=== PATIENT | male | born 1980 | race Caucasian/White ===

== ENCOUNTER 2018-01-16 07:34 | Emergency (ER) | payer SELFPAY ==
[2018-01-16 07:48] VITALS: BP 136/81
--- NOTE | 2018-01-16 08:56 | UC ---
Respiratory Complaint HPI - HPI Summary HPI Summary: PATIENT PRESENTS WITH ABOUT A WEEK OF COUGH AND NASAL CONGESTION. HAD SORE THROAT INITIALLY THAT IS NOW RESOLVED. NO EAR PAIN, NAUSEA/VOMITING OR FEVER. - History of Current Complaint Chief Complaint: UCRespiratory Stated Complaint: RESP ISSUE Time Seen by Provider: 01/16/18 08:27 Hx Obtained From: Patient Onset/Duration: Gradual Onset, Lasting Days, Still Present Timing: Constant Severity Initially: Moderate Severity Currently: Moderate Pain Intensity: 4 Pain Scale Used: 0-10 Numeric Character: Cough: Nonproductive Aggravating Factors: Nothing Alleviating Factors: Nothing Associated Signs And Symptoms: Positive: Wheezing, URI, Nasal Congestion, Sinus Discomfort. Negative: Dyspnea, Fever, Pleuritic Chest Pain - Allergies/Home Medications Allergies/Adverse Reactions: Allergies Allergy/AdvReac Type Severity Reaction Status Date / Time Penicillins Allergy Unknown Verified 01/16/18 07:48 Reaction Details Home Medications: Home Medications Dm/PE/Acetaminophen/Doxylamine [Vicks Nyquil Severe Cold-Flu] 1 tab PO 01/16/18 [History] Ibuprofen TAB* [Advil TAB*] 800 mg PO Q6H PRN 01/16/18 [History Confirmed ] PMH/Surg Hx/FS Hx/Imm Hx Respiratory History: Asthma - Surgical History Surgical History: Yes Surgery Procedure, Year, and Place: Tendon repair right pointer finger. surgical repair of lung in 2003 - Family History Known Family History: Negative: Hypertension - Social History Alcohol Use: Occasionally Substance Use Type: None Smoking Status (MU): Heavy Every Day Tobacco Smoker Type: Cigarettes Amount Used/How Often: 1 PPD Review of Systems Constitutional: Negative ENT: Sore Throat, Nasal Discharge, Sinus Congestion Respiratory: Cough Cardiovascular: Negative Gastrointestinal: Negative All Other Systems Reviewed And Are Negative: Yes Physical Exam Triage Information Reviewed: Yes Appearance: Well-Appearing, No Pain Distress, Well-Nourished Vital Signs: Initial Vital Signs Temp 98.8 F 01/16/18 07:45 Pulse 91 01/16/18 07:45 Resp 18 01/16/18 07:45 BP 136/81 01/16/18 07:45 Pulse Ox 98 01/16/18 07:45 Vital Signs Reviewed: Yes Eyes: Positive: Conjunctiva Clear ENT: Positive: Hearing grossly normal, Pharyngeal erythema, TMs normal Neck: Positive: Supple, Nontender, No Lymphadenopathy Respiratory Exam: Normal Abdominal Exam: Normal Musculoskeletal: Positive: No Edema Neurological: Positive: Alert Psychological: Positive: Age Appropriate Behavior Skin: Negative: rashes UC Diagnostic Evaluation - Laboratory O2 Sat by Pulse Oximetry: 98 Respiratory Course/Dx - Differential Dx/Diagnosis Provider Diagnoses: ACUTE URI Discharge - Sign-Out/Discharge Documenting (check all that apply): Discharge/Admit/Transfer - Discharge Plan Condition: Stable Disposition: HOME Prescriptions: Albuterol HFA INHALER* [Ventolin HFA Inhaler*] 2 puff INH Q4H PRN #1 mdi PRN Reason: Shortness Of Breath Codeine Phosphate/Guaifenesin [Codeine-Guaifen 10-100 mg/5 ml] 5 - 10 ml PO Q6H PRN #150 ml MDD 40ML PRN Reason: Cough predniSONE TAB* [Deltasone TAB*] 50 mg PO DAILY #5 tab Patient Education Materials: Upper Respiratory Infection (ED) Referrals: Troy Atkins DO [Doctor of Osteopathy] - If Needed Additional Instructions: YOUR SYMPTOMS ARE LIKELY VIRALLY MEDIATED AND SHOULD RESOLVE ON THEIR OWN WITH TIME. NO INDICATION FOR ANTIBIOTICS AT PRESENT. REST, HYDRATE, OTC MEDS NEEDED. WILL TREAT WITH PREDNISONE AND ALBUTEROL TO HELP WITH AIRWAY INFLAMMATION AND COUGH MEDICINE. SEEK FOLLOW-UP IF YOU ARE NOT IMPROVING OVER THE NEXT 1-2 WEEKS. USE OTC AFRIN FOR NASAL CONGESTION. 2 SPRAYS IN EACH NOSTRIL TWICE DAILY NEEDED. DO NOT USE FOR MORE THAN 3-4 DAYS IN A ROW TO PREVENT DEVELOPING REBOUND CONGESTION. CALL ME ON MONDAY IN [place] 7A-2:30P IF YOU ARE NOT IMPROVING. [phone] - Billing Disposition and Condition Condition: STABLE Disposition: HOME
== END 2018-01-16 08:59 | disposition home or self-care (01) ==
LOC: UCEAST 07:34
DX: J06.9 Acute upper respiratory infection, unspecified (principal); J45.909 Unspecified asthma, uncomplicated; Z88.0 Allergy status to penicillin; F17.210 Nicotine dependence, cigarettes, uncomplicated
CPT/HCPCS: 99212; G0463

== ENCOUNTER 2018-09-11 13:08 | Emergency (ER) | payer SELFPAY ==
[2018-09-11 13:25] VITALS: BP 117/74
[2018-09-11] MEDS ORDERED: Ketorolac INJ* 60 MG/2 ML VIAL IM ONE (13:30)
[2018-09-11] MEDS ORDERED: Cyclobenzaprine TAB* 10 MG PO ONE (13:31)
--- NOTE | 2018-09-11 13:38 | UC ---
Back Pain HPI - HPI Summary HPI Summary: Patient slipped on the ice and caught himself, pulling the right paraspinal muscles. hard to stand up straight and twist. - History of Current Complaint Chief Complaint: UCBackPain Stated Complaint: BACK INJURY Time Seen by Provider: 09/11/18 13:26 Hx Obtained From: Patient Onset/Duration: Sudden Onset, Lasting Days - 1 Timing: Constant Severity Initially: Moderate Severity Currently: Moderate Pain Intensity: 5 Back Pain: Is Discrete @ - right paraspinal muscles Character: Aching, Spasmodic Aggravating Factor(s): Movement Associated Signs And Symptoms: Positive: Negative - Allergies/Home Medications Allergies/Adverse Reactions: Allergies Allergy/AdvReac Type Severity Reaction Status Date / Time Penicillins Allergy Unknown Verified 09/11/18 13:25 Reaction Details PMH/Surg Hx/FS Hx/Imm Hx Previously Healthy: Yes - Surgical History Surgical History: Yes Surgery Procedure, Year, and Place: Tendon repair right pointer finger. surgical repair of lung in 2003 - Family History Known Family History: Positive: None Negative: Hypertension - Social History Alcohol Use: Occasionally Substance Use Type: None Smoking Status (MU): Heavy Every Day Tobacco Smoker Type: Cigarettes Amount Used/How Often: 1 PPD Review of Systems All Other Systems Reviewed And Are Negative: Yes Constitutional: Positive: Negative Skin: Positive: Negative Eyes: Positive: Negative ENT: Positive: Negative Respiratory: Positive: Negative Cardiovascular: Positive: Negative Gastrointestinal: Positive: Negative Genitourinary: Positive: Negative Motor: Positive: Negative Neurovascular: Positive: Negative Musculoskeletal: Positive: Decreased ROM, Myalgia Neurological: Positive: Negative Psychological: Positive: Negative Is Patient Immunocompromised?: No Physical Exam Triage Information Reviewed: Yes Appearance: Well-Appearing, Well-Nourished, Pain Distress Vital Signs: Initial Vital Signs Temp 99.1 F 09/11/18 13:20 Pulse 77 09/11/18 13:20 Resp 16 09/11/18 13:20 BP 117/74 09/11/18 13:20 Pulse Ox 100 09/11/18 13:20 Vital Signs Reviewed: Yes Eye Exam: Normal ENT Exam: Normal Dental Exam: Normal Neck exam: Normal Respiratory Exam: Normal Respiratory: Positive: Chest non-tender, Lungs clear, Normal breath sounds Cardiovascular Exam: Normal Cardiovascular: Positive: RRR, No Murmur, Pulses Normal Abdominal Exam: Normal Abdomen Description: Positive: Nontender, No Organomegaly, Soft Bowel Sounds: Positive: Present Musculoskeletal: Positive: Strength Intact, No Edema, ROM Limited @ - in rotation of trunk and ext Neurological Exam: Normal Psychological Exam: Normal Skin Exam: Normal Back Pain Course/Dx - Course Course Of Treatment: hx obtained,exam performed ,meds reviewed, ROM tested, pain relief given and educated on home care. - Differential Dx/Diagnosis Differential Diagnosis/HQI/PQRI: Herniated Disc, Strain, Sprain Provider Diagnosis: Strain of muscle, fascia and tendon of lower back, initial encounter Discharge - Sign-Out/Discharge Documenting (check all that apply): Patient Departure All imaging exams completed and their final reports reviewed: No Studies - Discharge Plan Condition: Stable Disposition: HOME Prescriptions: Cyclobenzaprine TAB* [Flexeril 10 MG TAB*] 10 mg PO TID PRN #21 tab PRN Reason: Spasms Patient Education Materials: Lower Back Exercises (ED), Muscle Strain (DC) Referrals: No Primary Care Phys,NOPCP [Primary Care Provider] - Additional Instructions: 1. use the medication as prescribed. 2. Use heat and perform gentle stretching throughout the day. 3. Resting for the next 48 hours combined with heat and stretching will provide the best recovery. 4. Follow up as needed 5. No Ibuprofen or aleve until9:30 tonight, Tylenol is ok - Billing Disposition and Condition Condition: STABLE Disposition: Home
== END 2018-09-11 13:55 | disposition home or self-care (01) ==
LOC: UCEAST 13:08
DX: S39.012A Strain of muscle, fascia and tendon of lower back, initial encounter (principal); F17.210 Nicotine dependence, cigarettes, uncomplicated; Z88.0 Allergy status to penicillin; W00.0XXA Fall on same level due to ice and snow, initial encounter; Y92.9 Unspecified place or not applicable
CPT/HCPCS: 96372; 99212; A9270-GY; G0463; J1885

== ENCOUNTER 2019-05-31 08:08 | Emergency (ER) | payer SELFPAY ==
[2019-05-31 08:15] VITALS: BP 117/78
[2019-05-31] MEDS ORDERED: Aspirin 81 mg CHEW TAB* 81 MG TAB.CHEW PO ONE (08:24)
--- NOTE | 2019-05-31 08:30 | ED ---
HPI Chest Pain - HPI Summary HPI Summary: 39 yr old male with the complaint of chest pain. Onset this morning when driving to work. His pain is 6/10, feels heavy across the chest with tingling down both arms. He has nausea and sweatiness. Denies fever. He is a smoker. - History of Current Complaint Chief Complaint: UCChestPain Time Seen by Provider: 05/31/19 08:13 Pain Intensity: 6 - Allergy/Home Medications Allergies/Adverse Reactions: Allergies Allergy/AdvReac Type Severity Reaction Status Date / Time No Known Allergies Allergy Verified 05/31/19 08:15 PMH/Surg Hx/FS Hx/Imm Hx Endocrine/Hematology History: Denies: Hx Diabetes, Hx Thyroid Disease Cardiovascular History: Denies: Hx Hypertension Respiratory History: Reports: Hx Asthma Denies: Hx Chronic Obstructive Pulmonary Disease (COPD) GI History: Denies: Hx Ulcer - Surgical History Surgery Procedure, Year, and Place: Tendon repair right pointer finger. surgical repair of lung in 2003 Infectious Disease History: No Infectious Disease History: Denies: Hx Clostridium Difficile, Hx Hepatitis, Hx Human Immunodeficiency Virus (HIV), Hx of Known/Suspected MRSA, Hx Shingles, Hx Tuberculosis, Hx Known/ Suspected VRE, Hx Known/Suspected VRSA, History Other Infectious Disease, Traveled Outside the [place] in Last 30 Days - Family History Known Family History: Positive: None Negative: Hypertension - Social History Occupation: Employed Full-time Alcohol Use: Occasionally Substance Use Type: Reports: None Smoking Status (MU): Heavy Every Day Tobacco Smoker Type: Cigarettes Amount Used/How Often: 1 PPD Length of Time of Smoking/Using Tobacco: 20 Have You Smoked in the Last Year: Yes Review of Systems Constitutional: Negative Positive: Chest Pain All Other Systems Reviewed And Are Negative: Yes Physical Exam Triage Information Reviewed: Yes Vital Signs On Initial Exam: Initial Vitals Temp Pulse Resp BP Pulse Ox 99.1 F 75 16 117/78 100 05/31/19 08:10 05/31/19 08:10 05/31/19 08:10 05/31/19 08:10 05/31/19 08:10 Vital Signs Reviewed: Yes Appearance: Positive: Well-Appearing, No Pain Distress Skin: Positive: Warm, Skin Color Reflects Adequate Perfusion Head/Face: Positive: Normal Head/Face Inspection Eyes: Positive: EOMI ENT: Positive: Normal ENT inspection Neck: Positive: Nontender Respiratory/Lung Sounds: Positive: Clear to Auscultation, Breath Sounds Present Cardiovascular: Positive: RRR. Negative: Murmur Abdomen Description: Negative: Distended Musculoskeletal: Positive: Strength/ROM Intact Neurological: Positive: Sensory/Motor Intact, Alert, Oriented to Person Place, Time, CN Intact II-III, Normal Gait, Speech Normal Psychiatric: Positive: Normal Diagnostics - Vital Signs Vital Signs Temp Pulse Resp BP Pulse Ox 05/31/19 08:10 99.1 F 75 16 117/78 100 - Laboratory Lab Statement: Any lab studies that have been ordered have been reviewed, and results considered in the medical decision making process. - EKG 05/31/19 Cardiac Rate: NL EKG Rhythm: Sinus Rhythm ST Segment: Non-Specific - incomplete RBBB. NO STEMI Ectopy: None Chest Pain Course/Dx - Course Course Of Treatment: 39 yr old with chest pain. Refused ambulace transport to the ER. Signed out AMA. He says he is driving himself to [place] [facility]. - Diagnoses Provider Diagnoses: Chest pain Discharge ED - Sign-Out/Discharge Documenting (check all that apply): Patient Departure All imaging exams completed and their final reports reviewed: No Studies - Discharge Plan Condition: Good Disposition: AGAINST MEDICAL ADVICE Referrals: No Primary Care Phys,NOPCP [Primary Care Provider] - - Billing Disposition and Condition Condition: GOOD Disposition: Against Medical Advice
== END 2019-05-31 08:36 | disposition left against medical advice (07) ==
LOC: UCCORT 08:08
DX: R07.89 Other chest pain (principal); I45.10 Unspecified right bundle-branch block; R11.0 Nausea; R61 Generalized hyperhidrosis; F17.210 Nicotine dependence, cigarettes, uncomplicated
CPT/HCPCS: 93005; 99212; A9270-GY; G0463

== ENCOUNTER 2019-06-24 15:44 | Emergency (ER) | payer SELFPAY ==
[2019-06-24 16:08] VITALS: BP 129/72
--- NOTE | 2019-06-24 16:10 | UC ---
Skin Complaint HPI - HPI Summary HPI Summary: 39 yo male presents with painful rash to left side. He tells me that 2 days ago he noticed some ache in his left mid back and left side. Yesterday noticed a small red [place] on his left side that has since spread and is now clustered with similar appearing lesions. Lesions "ache" and are mildly itchy. He states a co-worker had shingles a week or so ago and pt is concerned about this. He has been feeling well otherwise and denies recent illness, headache, fever, chills, or other rash. - History of Current Complaint Chief Complaint: UCSkin Time Seen by Provider: 06/24/19 16:10 Stated Complaint: INSECT BITE Hx Obtained From: Patient Onset/Duration: Gradual Onset Onset Severity: Mild Current Severity: Mild Pain Intensity: 3 Pain Scale Used: 0-10 Numeric - Allergy/Home Medications Allergies/Adverse Reactions: Allergies Allergy/AdvReac Type Severity Reaction Status Date / Time No Known Allergies Allergy Verified 06/24/19 16:04 Home Medications: Home Medications Ibuprofen TAB* [Advil TAB*] 600 mg PO Q6H PRN 06/24/19 [History Confirmed ] PMH/Surg Hx/FS Hx/Imm Hx Respiratory History: Asthma - Surgical History Surgical History: Yes Surgery Procedure, Year, and Place: Tendon repair right pointer finger. surgical repair of lung in 2003 - Family History Known Family History: Positive: None Negative: Hypertension - Social History Occupation: Employed Full-time Lives: With Family Alcohol Use: Occasionally Substance Use Type: None Smoking Status (MU): Heavy Every Day Tobacco Smoker Type: Cigarettes Amount Used/How Often: 10/day Length of Time of Smoking/Using Tobacco: 20 Have You Smoked in the Last Year: Yes Review of Systems All Other Systems Reviewed And Are Negative: No Constitutional: Positive: Negative Skin: Positive: Rash Eyes: Positive: Negative ENT: Positive: Negative Respiratory: Positive: Negative Cardiovascular: Positive: Negative Gastrointestinal: Positive: Negative Neurovascular: Positive: Negative Neurological: Positive: Negative Psychological: Positive: Negative Physical Exam - Summary Physical Exam Summary: GENERAL: NAD. WDWN. No pain distress. SKIN: LEFT MID BACK/[place]/LEFT RIBS: Along left dermatome ~T7/T8 there area clusters of mildly erythemaous lesions that are slightly raised. Mildly TTP. No blisters, open wounds, drainage, streaking. Does not cross midline. NECK: Supple. Nontender. No lymphadenopathy. CHEST: No accessory muscle use. Breathing comfortably and in no distress. CV: Pulses intact. Cap refill <2seconds NEURO: Alert. PSYCH: Age appropriate behavior. Triage Information Reviewed: Yes Vital Signs: Initial Vital Signs Temp 99.4 F 06/24/19 16:05 Pulse 56 06/24/19 16:05 Resp 18 06/24/19 16:05 BP 129/72 06/24/19 16:05 Pulse Ox 96 06/24/19 16:05 Vital Signs Reviewed: Yes Course/Dx - Course Course Of Treatment: Suspect shingles. Advised to keep areas covered until lesions have dissipated. He does not have insurance, therefore will use the Urgent Rx program, which only covers acyclovir and not valacyclovir. Advised to continue ibuprofen for discomfort. - Diagnoses Provider Diagnosis: Shingles Discharge ED - Sign-Out/Discharge Documenting (check all that apply): Patient Departure All imaging exams completed and their final reports reviewed: No Studies - Discharge Plan Condition: Stable Disposition: HOME Prescriptions: Acyclovir [Zovirax 800 MG] 800 mg PO SEE INSTRUCTIONS 7 Days #35 tab Lidocaine 4% TOPICAL* 1 applic TOPICAL BID #1 tube Patient Education Materials: Shingles (ED) Referrals: No Primary Care Phys,NOPCP [Primary Care Provider] - Additional Instructions: If you develop a fever, shortness of breath, chest pain, new or worsening symptoms - please call your PCP or go to the ED immediately. Keep the area covered at all times until lesions have crusted over and are healing - Billing Disposition and Condition Condition: STABLE Disposition: Home - Attestation Statements Provider Attestation: Per institutional requirements, I have reviewed the chart, however, I was not consulted specifically or made aware of this patient by the midlevel provider. I did not personally evaluate, interact with , or disposition this patient.
== END 2019-06-24 16:29 | disposition home or self-care (01) ==
LOC: UCEAST 15:44
DX: B02.9 Zoster without complications (principal); F17.210 Nicotine dependence, cigarettes, uncomplicated
CPT/HCPCS: 99212; G0463

== ENCOUNTER 2019-09-29 09:59 | Emergency (ER) | payer BC ==
[2019-09-29] MEDS ORDERED: Ketorolac *IM* INJ* 60 MG/2 ML VIAL IM ONE (10:17)
--- NOTE | 2019-09-29 10:18 | ED ---
Back Pain - HPI Summary HPI Summary: Pt is a 39 y/o M presenting to the ED with a chief complaint of lower back pain. Pt states hes a [employer] for a living, and on 09/27/2019 he picked up a block and twisted incorrectly, throwing out the lower part of his back. The pain radiates down his left leg, and is more on the left side. Hes leaning to the left side, and is having difficulty walking. Hes been taking IBU and Tylenol at home to treat. Denies urinary sx. - History of Current Complaint Chief Complaint: EDBackInjuryPain Stated Complaint: BACK INJURY PER PT Time Seen by Provider: 09/29/19 10:05 Hx Obtained From: Patient Onset/Duration: Sudden Onset, Lasting Days, Still Present Onset/Duration: Started Hours Ago, Still Present Timing: Constant, Lasting Days Back Pain Location: Is Discrete @ - lower back Severity Initially: Moderate Severity Currently: Severe Pain Intensity: 7 Pain Scale Used: 0-10 Numeric Aggravating Symptom(s): Movement, Bending, Walking Alleviating Symptom(s): Nothing Associated Signs And Symptoms: Positive: Negative - Allergies/Home Medications Allergies/Adverse Reactions: Allergies Allergy/AdvReac Type Severity Reaction Status Date / Time No Known Allergies Allergy Verified 09/29/19 10:03 PMH/Surg Hx/FS Hx/Imm Hx Previously Healthy: Yes Endocrine/Hematology History: Denies: Hx Diabetes, Hx Thyroid Disease Cardiovascular History: Denies: Hx Hypertension Respiratory History: Reports: Hx Asthma Denies: Hx Chronic Obstructive Pulmonary Disease (COPD) GI History: Denies: Hx Ulcer - Surgical History Surgery Procedure, Year, and Place: Tendon repair right pointer finger. surgical repair of lung in 2003 Infectious Disease History: No Infectious Disease History: Denies: Hx Clostridium Difficile, Hx Hepatitis, Hx Human Immunodeficiency Virus (HIV), Hx of Known/Suspected MRSA, Hx Shingles, Hx Tuberculosis, Hx Known/ Suspected VRE, Hx Known/Suspected VRSA, History Other Infectious Disease, Traveled Outside the [place] in Last 30 Days - Family History Known Family History: Negative: Hypertension - Social History Alcohol Use: Occasionally Hx Substance Use: No Substance Use Type: Reports: None Hx Tobacco Use: Yes Smoking Status (MU): Heavy Every Day Tobacco Smoker Type: Cigarettes Amount Used/How Often: 10/day Length of Time of Smoking/Using Tobacco: 20 Have You Smoked in the Last Year: Yes Review of Systems Positive: no symptoms reported Positive: Myalgia - back pain, radiating down leg All Other Systems Reviewed And Are Negative: Yes Physical Exam Triage Information Reviewed: Yes Vital Signs On Initial Exam: Initial Vitals Temp Pulse Resp BP Pulse Ox 98.1 F 73 16 121/85 98 09/29/19 10:01 09/29/19 10:01 09/29/19 10:01 09/29/19 10:01 09/29/19 10:01 Vital Signs Reviewed: Yes Procedures - Sedation Patient Received Moderate/Deep Sedation with Procedure: No Diagnostics - Vital Signs Vital Signs Temp Pulse Resp BP Pulse Ox 09/29/19 10:01 98.1 F 73 16 121/85 98 - Laboratory Lab Statement: Any lab studies that have been ordered have been reviewed, and results considered in the medical decision making process. Back Pain Course/Dx - Course Course Of Treatment: Pt is a 39 y/o M presenting to the ED with a chief complaint of lower back pain that radiates down his left leg after an accidental injury at work as a [employer]. Hes been taking IBU and Tylenol at home to treat. Denies any urinary sx. On exam, pt is tender throughout distal lumbar spine and in the region of the left SI joint. Pt leaning toward left secondary to left paraspinal lumbar muscle spasms. In the ED, pt will be given a shot of Toradol to try and alleviate the pain. Instructed to continue at-home tx with Tylenol and IBU, as well as taking hot baths and applying heating pads to the area to try and relax the muscles. Pt agreeable with this plan. D/c'ed home with dx of low back pain and SI joint pain. - Diagnoses Provider Diagnoses: Low back pain, Sacroiliac joint pain Discharge ED - Sign-Out/Discharge Documenting (check all that apply): Patient Departure - Discharge Plan Condition: Stable Disposition: HOME Patient Education Materials: Low Back Strain (ED), Lower Back Exercises (ED) Referrals: [facility] [Outside] [facility] [Outside] Additional Instructions: Please follow up with your primary care provider within the next 3 days. Continue treating your pain at home with Ibuprofen and Tylenol, as well as heat (including hot baths or heating pads) to try and relax the muscles in your low back. Return to the emergency department with any new or worsening symptoms. - Billing Disposition and Condition Condition: STABLE Disposition: Home - Attestation Statements Document Initiated by Scribe: Yes Documenting Scribe: Elyssa Forbes Provider For Whom Lynn is Documenting (Include Credential): Jamal Kapadia DO. Scribe Attestation: Elyssa Ortiz, vargheseibed for Jamal Kapadia DO. on 09/29/19 at 1128. Scribe Documentation Reviewed: Yes Provider Attestation: The documentation as recorded by the scribe, Elyssa Forbes accurately reflects the service I personally performed and the decisions made by , Jamal Kapadia DO. Status of Scribe Document: Viewed
--- OUTSIDE RECORDS SUMMARY | 2019-09-29 10:28 | XMS REPORT | Summary of Care ---
:1980 Author Organization [facility] Address [address] [address] Care Team Providers Name Role Phone None, Jolley Unavailable Unavailable None, Jolley Primary Care Provider Unavailable Reason for Visit Reason Comments Cough Pt c/o cough, chest congestion and nasal congestion that began 2 weeks ago. Medication Refill Pt requests refill of inhaler. Encounter Details Date Type Department Care Team Description 08/19/2019 Office Visit [facility] Shantel Hylton, Uncontrolled moderate persistent asthma (Primary Dx); Practice [facility]; [address] Tobacco use disorder [place], [place] [id number] [place] [address] [phone] Allergies Active Allergy Reactions Severity Noted Date Comments Penicillin G Unknown Reaction 10/23/2017 documented as of this encounter (statuses as of 08/19/2019) Medications Medication Sig Dispensed Refills Start Date End Date Status fluticasone Take 2 Puffs by 1 Inhaler 0 10/23/2017 Active (FLOVENT) 110 inhalation MCG/ACT TWICE DAILY. Inhalation AerosolIndication s: Uncontrolled moderate persistent asthma albuterol HFA Take 2 Puffs by 1 Each 4 08/19/2019 Active (VENTOLIN) 108 inhalation (90 Base) MCG/ACT EVERY FOUR Inhalation Aero HOURS NEEDED SolnIndications: (SOB). Uncontrolled moderate persistent asthma azithromycin Take 2 pills on 6 Tab 0 08/19/2019 Active (ZITHROMAX) 250 the first day MG Oral Tab and 1 pill each day for 4 days predniSONE Take 2 Tabs by 10 Tab 0 08/19/2019 Active (DELTASONE) 20 MG mouth DAILY. Oral Tab predniSONE Take 1 Tab by 30 Tab 0 10/23/2017 Discontinued (DELTASONE) 20 MG mouth DAILY. 9 Oral TabIndications: Exacerbation of asthma, unspecified asthma severity, unspecified whether persistent albuterol HFA INHALE 2 PUFFS 18 Each 0 12/31/2018 Discontinued (VENTOLIN) 108 BY MOUTH EVERY 9 (Reorder) (90 Base) MCG/ACT 4 HOURS Inhalation Aero NEEDED FOR SolnIndications: SHORTNESS OF Uncontrolled BREATH / COUGH moderate / WHEEZING persistent asthma documented as of this encounter (statuses as of 08/19/2019) Active Problems Problem Noted Date Mild persistent asthma 08/29/2013 Overview: Severe in childhood Tobacco use disorder 08/29/2013 Other general symptoms(780.99) 01/02/2005 Other spontaneous pneumothorax 01/02/2005 documented as of this encounter (statuses as of 08/19/2019) Social History Tobacco Use Types Packs/Day Years Used Date Current Every Day Smoker Cigarettes 1 15 Smokeless Tobacco: Never Used Alcohol Use Drinks/Week oz/Week Comments Yes drinks "once in a while"-maybe 6 a week Sex Assigned at Date Recorded Not on file Job Start Date Occupation Industry Not on file Not on file Not on file Travel History Travel Start Travel End No recent travel history available. documented as of this encounter Last Filed Vital Signs Vital Sign Reading Time Taken Comments Blood Pressure 120/82 08/19/2019 9:27 AM EST Pulse 96 08/19/2019 9:27 AM EST Temperature 36.8 08/19/2019 9:27 AM EST C (98.3 F) Respiratory Rate - - Oxygen Saturation 96% 08/19/2019 9:27 AM EST Inhaled Oxygen Concentration - - Weight 84.4 kg (186 lb) 08/19/2019 9:27 AM EST Height 188 cm (6' 2") 08/19/2019 9:27 AM EST Body Mass Index 23.88 08/19/2019 9:27 AM EST documented in this encounter Patient Instructions Patient InstructionsDoShantel pavon PA-C - 08/19/2019 9:40 AM ESTEscribed zpak , take with food Escribed prednisone 40mg once daily x 5 days, take in morning Escribed refill of Albuterol inhaler Avoid creamy foods and drink Rest, gargle with warm salt water Push water, soup, juice, tea with honey/lemon OTC Tylenol/Ibuprofen for fever/pain Cool mist vaporizer at bedtime Call if not improving or with any questions or concerns documented in this encounter Progress Notes Shantel Oconnell PA-C - 08/19/2019 9:40 AM EST PATIENT: Gordo Boo Jr. : 1980 DATE OF SERVICE: 08/19/2019 REFERRING PRACTITIONER: Other PRIMARY CARE PROVIDER: None, Jolley CHIEF COMPLAINT: Chief Complaint Patient presents with Cough Pt c/o cough, chest congestion and nasal congestion that began 2 weeks ago. Medication Refill Pt requests refill of inhaler. Subjective HISTORY OF PRESENT ILLNESS: Gordo Boo Jr. is a 39-y.o. male who presents with coughing, chest congestion, nasal congestion x 2 weeks Taking OTC sudafed, robitussin CF -- temporary relief Also asking for refill of albuterol inhaler -- has asthma - using inhaler every 4 hrs Smokin cigs daily Home heat is hot, forced air, not using humidifier Denies fever, chills, nausea, vomiting, diarrhea, chest pains, SOB Past Medical History: Diagnosis Date Asthma Past Surgical History: Procedure Laterality Date [place] CHEST SURGERY PROCEDURE UNLISTED 12/2003 collapsed lung Family History Problem Relation Age of Onset Asthma Father emphysema Asthma Son Current Outpatient Medications Medication Sig albuterol HFA (VENTOLIN) 108 (90 Base) MCG/ACT Inhalation Aero Soln INHALE 2 PUFFS BY MOUTH EVERY 4 HOURS NEEDED FOR SHORTNESS OF BREATH / COUGH / WHEEZING fluticasone (FLOVENT) 110 MCG/ACT Inhalation Aerosol Take 2 Puffs by inhalation TWICE DAILY. No current facility-administered medications for this visit. Allergies Allergen Reactions Penicillin G Unknown Reaction Social History Socioeconomic History Marital status: Single Spouse name: Not on file Number of children: Not on file Years of education: Not on file Highest education level: Not on file Occupational History Not on file Social Needs Financial resource strain: Not on file Food insecurity: Worry: Not on file Inability: Not on file Transportation needs: Medical: Not on file Non-medical: Not on file Tobacco Use Smoking status: Current Every Day Smoker Packs/day: 1.00 Years: 15.00 Pack years: 15.00 Types: Cigarettes Smokeless tobacco: Never Used Substance and Sexual Activity Alcohol use: Yes Comment: drinks "once in a while"-maybe 6 a week Drug use: No Sexual activity: Yes Partners: Female Lifestyle Physical activity: Days per week: Not on file Minutes per session: Not on file Stress: Not on file Relationships Social connections: Talks on phone: Not on file Gets together: Not on file Attends amish service: Not on file Active member of club or organization: Not on file Attends meetings of clubs or organizations: Not on file Relationship status: Not on file Intimate partner violence: Fear of current or ex partner: Not on file Emotionally abused: Not on file Physically abused: Not on file Forced sexual activity: Not on file Other Topics Concern Not on file Social History Narrative Not on file REVIEW OF SYSTEMS: Skin: negative skin lesions Eyes: negative visual blurring Ears/Nose/Throat: positive rhinorrhea, sinus pressure, post nasal drip Respiratory: positive cough, asthma Cardiovascular: negative chest pain Gastrointestinal: negative abdominal pain, constipation, diarrhea, nausea or vomiting Genitourinary: negative burning on urination, dysuria Musculoskeletal: negative arthritis/joint pain Neurologic: negative numbness or tingling of feet or hands Psychiatric: negative anxiety Hematologic/Lymphatic/Immunologic: negative allergies Endocrine: negative diabetes or hot flashes/sweats Objective PHYSICAL EXAMINATION: VITALS: BP 120/82 | Pulse 96 | Temp 98.3 F (36.8 C) | Ht 6' 2" ( 1.88 m) | Wt 186 lb (84.4 kg) | SpO2 96% | BMI 23.88 kg/m Body mass index is 23.88 kg/m. General appearance: alert, mild distress, cooperative, oriented times 3 Skin: Skin color, texture, turgor normal. No rashes or lesions. Head: Normocephalic. No masses, lesions, tenderness or abnormalities Eyes: conjunctivae/corneas clear. PERRL, EOM's intact. Ears: positive findings: TMs bulging bilaterally Nose/Sinuses: positive findings: mucosa erythematous and swollen, clear rhinorrhea, frontal and maxillary sinuses tender to palpation Oropharynx: positive findings: mild oropharyngeal erythema, post nasal drip present Neck: Neck supple, FROM. No cervical or supraclavicular adenopathy. Lungs: Mild expiratory wheezing and rhonchi present bilaterally Heart: RRR. No murmur, clicks or gallops. No peripheral edema . IMPRESSION: ICD-9-CM ICD-10-CM 1. Uncontrolled moderate persistent asthma 493.90 J45.40 albuterol HFA (VENTOLIN ) 108 (90 Base) MCG/ACT Inhalation Aero Soln 2. Acute URI 465.9 J06.9 3. Tobacco use disorder 305.1 F17.200 Plan PLAN: Escribed zpak, take with food Escribed prednisone 40mg once daily x 5 days, take in morning Escribed refill of Albuterol inhaler Avoid creamy foods and drink Rest, gargle with warm salt water Push water, soup, juice, tea with honey/lemon OTC Tylenol/Ibuprofen for fever/pain Cool mist vaporizer at bedtime Strongly suggested stop smoking Call if not improving or with any questions or concerns Author: Shantel Oconnell PA-C 08/19/2019 09:28 documented in this encounter Plan of Treatment Health Maintenance Due Date Last Done Comments PNEUMOCOCCAL 0-64 YRS (1 of - 02/16/1984 PPSV23) LIPID DISORDER SCREENING 02/16/1996 INFLUENZA VACCINE (#1) 2019 DEPRESSION SCREENING 08/19/2020 08/19/2019 HPV IMMUNIZATION SERIES Aged Out No longer eligible based on patient's age to complete this topic MENINGOCOCCAL VACCINE IMM Aged Out No longer eligible based on patient's age to complete this topic documented as of this encounter Results Not on filedocumented in this encounter Visit Diagnoses Diagnosis Uncontrolled moderate persistent asthma - Primary Acute URI Acute upper respiratory infections of unspecified site Tobacco use disorder documented in this encounter
[2019-09-29 10:39] VITALS: BP 120/76
== END 2019-09-29 10:36 | disposition home or self-care (01) ==
LOC: ED 09:59
DX: M54.5 Low back pain (principal); M53.3 Sacrococcygeal disorders, not elsewhere classified; J45.909 Unspecified asthma, uncomplicated; F17.210 Nicotine dependence, cigarettes, uncomplicated
CPT/HCPCS: 96372; 99282; J1885